=== PATIENT | female | born 1995 | race Two or more races ===

== ENCOUNTER 2023-01-08 22:40 | Emergency (ER) | payer OTHER ==
[~2023-01-08] VITALS: Ht 165.1 cm; Wt 120.2 kg
== END 2023-01-09 04:00 ==
LOC: ER 22:40
DX: O20.8 Other hemorrhage in early pregnancy (principal); Z3A.01 Less than 8 weeks gestation of pregnancy; O99.012 Anemia complicating pregnancy, second trimester